=== PATIENT | male | born 1980 | race Caucasian/White ===

== ENCOUNTER 2016-08-15 16:53 | Emergency (ER) | payer BC, OTHER ==
--- NOTE | 2016-08-15 17:33 | EDM.PDOC ---
ED HPI Skin/Rash - General Chief Complaint: Skin Complaint Stated Complaint: POSSIBLE INFECTION/BUTTOCKS Time Seen by Provider: 08/15/16 17:33 Source: Reports: Patient - History of Present Illness INITIAL COMMENTS - FREE TEXT/NARRATIVE: HISTORY AND PHYSICAL: History of present illness: []pt presents with history of hoarse voice x 2 months initial evaluation at [facility], he recieved abx(unknown) plus injection right glut, he states that since injection he has had large " lump" on right buttock. today as he was sitting, he felt " pop" sensation in right glut, after looking himself he notes large purple bruise on right glut no f/n/v/c/s/cp/sob/ruggiero/d/palp Review of systems: As per history of present illness and below otherwise all systems reviewed and negative. Past medical history: As per history of present illness and as reviewed below otherwise noncontributory. Surgical history: As per history of present illness and as reviewed below otherwise noncontributory. Social history: No reported history of drug or alcohol abuse. Family history: As per history of present illness and as reviewed below otherwise noncontributory. Physical exam: HEENT: Atraumatic, normocephalic, pupils reactive, negative for conjunctival pallor or scleral icterus, mucous membranes moist, throat clear, neck supple, nontender, trachea midline. sinus tender R> L maxillary B?L very tender, copeous exudate right nare, left appears clear Lungs: Clear to auscultation, breath sounds equal bilaterally, chest nontender. Heart: S1S2, regular, negative for clicks, rubs, or JVD. Abdomen: Soft, nondistended, nontender. Negative for masses or hepatosplenomegaly. Negative for costovertebral tenderness. Pelvis: Stable nontender. Genitourinary: Deferred. Rectal: Deferred. Extremities: Atraumatic, negative for cords or calf pain. Neurovascular unremarkable. Neuro: Awake, alert, oriented. Cranial nerves II through XII unremarkable. Cerebellum unremarkable. Motor and sensory unremarkable throughout. Exam nonfocal. skin: 2 ' diameter bruise on right buttock, no r/w/swelling/ +tender no open lesion Diagnostics: []cbc/cmp/inr Therapeutics: []levaquin 500mg po daily #10 no rf flonase max otc sx tx Impression: [] Acute sinusitis Hematoma right buttock Definitive disposition and diagnosis as appropriate pending reevaluation and review of above. - Related Data Allergies Allergy/AdvReac Type Severity Reaction Status Date / Time Sulfa (Sulfonamide Allergy Hives Verified 08/15/16 17:30 Antibiotics) Home Meds: Ambulatory Orders Medication Instructions Recorded Confirmed Ibuprofen [Motrin] 08/15/16 Lisinopril 08/15/16 Sertraline [Zoloft] 100 mg PO BID 08/15/16 08/15/16 Past Medical History HEENT History: Reports: None Cardiovascular History: Reports: None Respiratory History: Reports: None Gastrointestinal History: Reports: None, Other (see below) Other Gastrointestinal History: stomach ulcers Genitourinary History: Reports: None Musculoskeletal History: Reports: Other (see below) Other Musculoskeletal History: back, knee Neurological History: Reports: Concussion, Head trauma Psychiatric History: Reports: PTSD Endocrine/Metabolic History: Reports: Obesity/BMI 30+ Hematologic History: Reports: None Immunologic History: Reports: None Oncologic (Cancer) History: Reports: None Dermatologic History: Reports: None - Past Surgical History Head Surgeries/Procedures: Reports: None GI Surgical History: Reports: Colonoscopy, EGD, Hernia, inguinal Musculoskeletal Surgical History: Reports: Shoulder surgery Other Musculoskeletal Surgeries/Procedures:: x Social & Family History - Family History Family Medical History: Noncontributory - Tobacco Use Smoking Status *Q: Former Smoker Used Tobacco, but Quit: Yes Month Tobacco Last Used: june - Caffeine Use Caffeine Use: Reports: Coffee - Recreational Drug Use Recreational Drug Use: No ED ROS GENERAL - Review of Systems Review Of Systems: ROS reveals no pertinent complaints other than HPI. ED EXAM, SKIN/RASH Exam: See Below Course - Vital Signs Last Recorded V/S: Last Vital Signs Temp 37.1 C 08/15/16 17:10 Pulse 92 08/15/16 18:33 Resp 16 08/15/16 18:33 BP 135/88 08/15/16 18:33 Pulse Ox 95 08/15/16 18:33 - Orders/Labs/Meds Labs: Laboratory Tests 08/15/16 08/15/16 08/15/16 Range/Units 17:50 17:50 17:50 WBC 4.99 (4.0-11.0) K/uL RBC 4.64 (4.50-5.90) M/uL Hgb 14.2 (13.0-17.0) g/dL Hct 42.3 (38.0-50.0) % MCV 91.2 (80.0-98.0) fL MCH 30.6 (27.0-32.0) pg MCHC 33.6 (31.0-37.0) g/dL RDW Std Deviation 45.3 (28.0-62.0) fl RDW Coeff of Sheri 14 (11.0-15.0) % Plt Count 205 (150-400) K/uL MPV 10.40 (7.40-12.00) fL Neut % (Auto) 47.7 L (48.0-80.0) % Lymph % (Auto) 39.3 (16.0-40.0) % Gulf % (Auto) 10.2 (0.0-15.0) % Eos % (Auto) 2.4 (0.0-7.0) % Baso % (Auto) 0.4 (0.0-1.5) % Neut # (Auto) 2.4 (1.4-5.7) K/uL Lymph # (Auto) 2.0 (0.6-2.4) K/uL Gulf # (Auto) 0.5 (0.0-0.8) K/uL Eos # (Auto) 0.1 (0.0-0.7) K/uL Baso # (Auto) 0.0 (0.0-0.1) K/uL Nucleated RBC % 0.0 /100WBC Nucleated RBCs # 0 K/uL INR 0.96 (0.86-1.11) Sodium 140 (136-146) mmol/L Potassium 4.1 (3.5-5.1) mmol/L Chloride 110 (98-110) mmol/L Carbon Dioxide 21 (21-31) mmol/L BUN 8 (6.0-23.0) mg/dL Creatinine 0.7 (0.6-1.5) mg/dL Est Cr Clr Drug Dosing 152.39 mL/min Estimated GFR (MDRD) > 60.0 ml/min Glucose 95 (60-110) mg/dL Calcium 9.1 (8.8-10.8) mg/dL Total Bilirubin 0.3 (0.1-1.5) mg/dL AST 22 (5-40) IU/L ALT 38 (8-54) IU/L Alkaline Phosphatase 76 (40-150) Total Protein 7.3 (6.0-8.0) g/dL Albumin 4.1 (3.5-5.0) g/dL Globulin 3.2 (2.0-3.5) g/dL Albumin/Globulin Ratio 1.3 (1.3-2.8) Departure - Departure Time of Disposition: 19:04 Disposition: Home, Self-Care 01 Condition: good Clinical Impression: Contusion, Acute sinusitis Forms: ED Department Discharge Additional Instructions: medication as directed : zyrtec 10 mg po daily mucinex 2 times daily mushtaq pot daily as discussed flonase 2 sprays each nostril daily levaquin 500mg po daily #10 no rf f/u primary care as needed f/u ent recommended for persistant sinusitis Dr. Haskins E[facility] call for f/u appointment [facility] [phone] [id number] [place] [id number]
[2016-08-15 18:25] LABS: CHLORIDE,CL 110 mmol/L (98-110); SODIUM,NA 140 mmol/L (136-146)
[2016-08-15 19:20] VITALS: BP 140/93
== END 2016-08-15 19:18 | disposition home or self-care (01) ==
LOC: MW.ED 16:53
DX: S30.0XXA Contusion of lower back and pelvis, initial encounter (principal); J01.90 Acute sinusitis, unspecified; Z87.891 Personal history of nicotine dependence; Z88.2 Allergy status to sulfonamides; E66.9 Obesity, unspecified; X58.XXXA Exposure to other specified factors, initial encounter
CPT/HCPCS: 36415; 80053; 85025; 85610; 99283